=== PATIENT | female | born 1995 | race Caucasian/White ===

== ENCOUNTER 2020-03-28 19:19 | Emergency (ER) | payer OTHER ==
[~2020-03-28] VITALS: Ht 162.6 cm; Wt 68.2 kg
[2020-03-28 19:20] VITALS: TEMP 97.1
[2020-03-28] MEDS ORDERED: FLEXERIL 1010 MG/TAB PO (20:33)
[2020-03-28] MEDS ORDERED: PREDNISONE20 MG PO (20:33)
[2020-03-28 20:46] VITALS: BP 112/70; PULSE 118
== END 2020-03-28 20:47 | disposition home or self-care (01) ==
LOC: COL.ER 19:19
DX: M54.5 Low back pain (principal); G89.29 Other chronic pain; F17.200 Nicotine dependence, unspecified, uncomplicated; Z85.850 Personal history of malignant neoplasm of thyroid
CPT/HCPCS: J1885; J7512

== ENCOUNTER 2020-09-08 06:49 | Outpatient (CLI) | payer OTHER ==
[~2020-09-08] VITALS: Ht 162.7 cm; Wt 65.4 kg
[~2020-09-08 06:49] MED LIST: FLEXERIL 1010 MG/TAB PO; PREDNISONE20 MG PO
[2020-09-08] MEDS ORDERED: SYNTHROID0.05 MG/TA PO (07:04)
[2020-09-08] MEDS ORDERED: LEXAPRO 5MG5 MG PO (07:04)
[2020-09-08] MEDS ORDERED: DESYREL 50MG50 MG PO (07:05)
[2020-09-08] MEDS ORDERED: birth control pill (07:06)
[2020-09-08] MEDS ORDERED: RIBOFLAVIN100 MG PO (07:06)
[2020-09-08] MEDS ORDERED: VITAMIN B12 1541 TAB PO (07:07)
[2020-09-08 07:13] VITALS: BP 106/80; PULSE 90; TEMP 98.2
[2020-09-08 10:00] VITALS: BP 112/69; PULSE 68
--- NOTE | 2020-09-08 10:00 | NUR ---
PT RETURNED TO ROOM VIA W/C. HAS NO C/O, WAS NAUSEATED EARLIER AND REPORTED B/P DROP WITH TEST, VSS. SKIN WARM AND DRY. PT TAKES WATER AND SNACK NOW. PT UP IN ROOM, 108/80, PULSE 67. IV D'CD INTACT. REVIEWED DISCHARGE INST. 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 PT DISCHARGED AMB. AT 1030
[2020-09-08] MEDS ORDERED: PROAMATINE 5MG T5 MG PO (10:09)
== END 2020-09-08 10:35 | disposition home or self-care (01) ==
LOC: COL.CAR 06:49
DX: R55 Syncope and collapse (principal); I95.9 Hypotension, unspecified; R42 Dizziness and giddiness; E03.9 Hypothyroidism, unspecified; R00.0 Tachycardia, unspecified; K58.9 Irritable bowel syndrome, unspecified; R56.9 Unspecified convulsions; Z87.820 Personal history of traumatic brain injury; Z90.89 Acquired absence of other organs; Z79.899 Other long term (current) drug therapy; Z79.890 Hormone replacement therapy